=== PATIENT | female | born 2005 | race Caucasian/White ===

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

== ENCOUNTER 2024-05-06 10:33 | Emergency (ER) | payer OTHER ==
[~2024-05-06] VITALS: Ht 167.6 cm; Wt 65.6 kg
[2024-05-06 13:59] VITALS: BP 118/65; TEMP 97.5; O2SAT 100
== END 2024-05-06 14:00 | disposition home or self-care (01) ==
LOC: M ED 10:33
DX: M25.512 Pain in left shoulder (principal)